=== PATIENT | male | born 1990 | race Caucasian/White ===

== ENCOUNTER 2016-07-03 12:46 | Emergency (ER) | payer OTHER ==
[~2016-07-03] VITALS: Ht 172.7 cm; Wt 68.0 kg
[2016-07-03 12:54] VITALS: BP 150/92
== END 2016-07-03 14:00 | disposition home or self-care (01) ==
LOC: ER 12:48
DX: S40.011A Contusion of right shoulder, initial encounter (principal); Z88.1 Allergy status to other antibiotic agents; W18.30XA Fall on same level, unspecified, initial encounter; Y93.67 Activity, basketball; Y92.89 Other specified places as the place of occurrence of the external cause; Y99.8 Other external cause status
CPT/HCPCS: 73000-TC; 73030-TC; A4606; Z7610